=== PATIENT | female | born 1960 | race Native Hawaiian/Other Pacific Islander ===

== ENCOUNTER 2017-10-07 08:10 | Outpatient (CLI) | payer BC | END 2017-10-07 22:54 | disposition home or self-care (01) | LOC: MAMMO 08:10 | DX: Z12.31 Encounter for screening mammogram for malignant neoplasm of breast (principal) ==

== ENCOUNTER 2018-10-26 09:20 | Outpatient (CLI) | payer BC | END 2018-10-26 20:39 | disposition home or self-care (01) | LOC: MAMMO 09:20 | DX: N64.59 Other signs and symptoms in breast (principal); Z12.31 Encounter for screening mammogram for malignant neoplasm of breast ==

== ENCOUNTER 2019-04-25 17:32 | Outpatient (CLI) | payer BC | END 2019-04-25 20:06 | disposition home or self-care (01) | LOC: LABW 17:32 → LAB 17:32 | DX: R30.0 Dysuria (principal) | CPT/HCPCS: 81000 ==

== ENCOUNTER 2019-07-21 13:02 | Outpatient (CLI) | payer BC | END 2019-07-21 19:31 | disposition home or self-care (01) | LOC: LABW 13:02 | DX: R30.0 Dysuria (principal) | CPT/HCPCS: 81000; 87086; 87088 ==

== ENCOUNTER 2021-02-26 08:16 | Outpatient (CLI) | payer BC | END 2021-02-26 18:54 | disposition home or self-care (01) | LOC: LABW 08:16 | PROVIDERS: ATTEND Nurse Practitioner | DX: R19.7 Diarrhea, unspecified (principal) | CPT/HCPCS: 82272; 83630; 87015; 87045; 87324; 87328; 87329; 87338; 87449; 87899 ==

== ENCOUNTER 2021-04-30 11:13 | Outpatient (CLI) | payer BC | END 2021-04-30 20:07 | disposition home or self-care (01) | LOC: MAMMO 11:13 | PROVIDERS: ATTEND Obstetrics & Gynecology | DX: Z12.31 Encounter for screening mammogram for malignant neoplasm of breast (principal); R10.2 Pelvic and perineal pain ==

== ENCOUNTER 2021-05-28 13:44 | Day surgery (SDC) | payer BC ==
[2021-05-26 11:22] LABS: PLATELET COUNT 230 K/uL (152-353)
[2021-05-26 11:31] LABS: POTASSIUM 4.5 mmol/L (3.6-5.2)
[~2021-05-28] VITALS: Ht 33 cm; Wt 0.8 kg
== END 2021-05-28 16:45 | disposition home or self-care (01) ==
LOC: OR 13:44
PROVIDERS: ATTEND Internal Medicine Gastroenterology
PROC: 0DB68ZZ Excision of Stomach, Via Natural or Artificial Opening Endoscopic (ICD-10-PCS; principal; 2021-05-28)
PROC: 0DB88ZZ Excision of Small Intestine, Via Natural or Artificial Opening Endoscopic (ICD-10-PCS; 2021-05-28)
DX: K25.9 Gastric ulcer, unspecified as acute or chronic, without hemorrhage or perforation (principal); K26.9 Duodenal ulcer, unspecified as acute or chronic, without hemorrhage or perforation; K44.9 Diaphragmatic hernia without obstruction or gangrene; K21.00 Gastro-esophageal reflux disease with esophagitis, without bleeding; R10.13 Epigastric pain; R11.2 Nausea with vomiting, unspecified; Z20.822 Contact with and (suspected) exposure to COVID-19
CPT/HCPCS: 80053; 85027; 87635; J2704; J7120; U0003

== ENCOUNTER 2022-05-12 14:54 | Outpatient (CLI) | payer BC | END 2022-05-12 19:00 | disposition home or self-care (01) | LOC: MAMMO 14:54 | PROVIDERS: ATTEND Internal Medicine | DX: Z12.31 Encounter for screening mammogram for malignant neoplasm of breast (principal) ==